=== PATIENT | male | born 1980 | race African-American/Black ===

== ENCOUNTER 2017-04-19 04:36 | Emergency (ER) | payer OTHER ==
[2017-04-19 06:08] LABS: ALT (SGPT) 11 U/L (8-55); AST (SGOT) 21 U/L (5-34); Albumin 4.5 g/dL (3.5-5.0); Alkaline Phosphatase 76 U/L (40-150); Anion Gap 13 mmol/L (10-20); BUN (Urea Nitrogen) 11 mg/dL (8.9-20.6); Bilirubin, Total 0.6 mg/dL (0.2-1.2); Calc. Creatinine Clearance 0 mL/min (70-130); Calcium 9.5 mg/dL (7.8-10.44); Carbon Dioxide 27 mmol/L (22-29); Chloride 104 mmol/L (98-107); Estimated GFR-MDRD Greater than 90; Globulin 3.3 g/dL (2.4-3.5); Glucose 90 mg/dL (70-105); Protein, Total 7.8 g/dL (6.0-8.3); Sodium 140 mmol/L (136-145)
[2017-04-19 06:20] LABS: Hemoglobin 15.5 g/dL (14.0-18.0); Mean Corpuscular HGB CONC 31.3 g/dL (32.0-36.0); Mean Corpuscular Hemoglobin 25.1 pg (27.0-31.0); Mean Corpuscular Volume 80.3 fl (80.0-94.0); Mean Platelet Volume 11.1 fL (7.4-10.4); Platelet Count 176 thou/uL (130-400); RBC Distribution Width 11.7 % (11.5-14.5); Red Blood Cell (RBC) Count 6.17 mill/uL (4.70-6.10); White Blood Cell (WBC) Count 4.4 thou/uL (4.8-10.8)
[2017-04-19 06:21] LABS: Lymphocytes 61 % (21-51); MDiff Complete? YES; Monocytes 2 % (0-10); Neutrophil 37 % (42-75); PLT Morphology Comment Appears Adequate
--- NOTE | 2017-04-19 07:56 | RAD ---
1 VIEW CHEST 2 VIEWS ABDOMEN: Date; 04/19/17 HISTORY: Evaluate for perforation or abscess. Possible ingestion of razor blade. FINDINGS: 1 VIEW CHEST: Normal cardiac silhouette. Lungs and pleural spaces are clear. No pneumothorax or osseous abnormaliti es. 2 VIEWS ABDOMEN: Metallic foreign body in the left upper quadrant compatible with ingested razor blade, presumed to be within the stomach. No evidence of pneumoperitoneum. Bowel gas pattern is nonspecific. IMPRESSION: 1. Ingestion of a razor blade, presumed to be in the stomach. 2. No acute cardiopulmonary process. Results of study discussed with Dr. Pro on 04/19/17 at 1223 hours. CODE CR. POS: [facility]
== END 2017-04-19 06:19 ==
LOC: NAV ERS 04:36
DX: T18.8XXA Foreign body in other parts of alimentary tract, initial encounter (principal); F31.9 Bipolar disorder, unspecified; F20.9 Schizophrenia, unspecified; Z79.899 Other long term (current) drug therapy
CPT/HCPCS: 74022; 80053; 83605; 85025